=== PATIENT | male | born 1945 | race Caucasian/White ===

== ENCOUNTER 2018-01-27 13:42 | Inpatient (IN) | payer OTHER, BC ==
[2018-01-27] MEDS ORDERED: ACETAMINOPHEN 500 MG TABLET (FP) PO ONE (14:16)
--- NOTE | 2018-01-27 14:16 | PDOC ---
History of Present Illness - General Chief Complaint: Injury Stated Complaint: FALL Time Seen by Provider: 01/27/18 14:15 - History of Present Illness Initial Comments: 01/27/18 14:23 The patient is a 72 year old male with a history of HTN, HLD, DM who presents for evaluation following a fall. The patient reports that he slipped on a driveway earlier today and fell onto his left hip prompting his presentation to the ED for further evaluation. He reports pain with passive and active movement of his left hip. He denies any other injuries or head trauma and otherwise denies fevers, chills, SOB, chest pain, nausea, vomiting, abdominal pain, numbness, tingling, weakness or changes with urination or bowel movements. Past History - Past Medical History Allergies/Adverse Reactions: Allergies Allergy/AdvReac Type Severity Reaction Status Date / Time No Known Allergies Allergy Verified 01/27/18 14:00 Home Medications: Ambulatory Orders Aspirin 81 mg PO DAILY 01/27/18 Cholecalciferol (Vitamin D3) [Vitamin D3] 1,000 unit PO DAILY 01/27/18 Fenofibrate 54 mg PO DAILY 01/27/18 Finasteride 5 mg PO DAILY 01/27/18 Insulin Aspart [Novolog] 0 unit SQ ASDIR 01/27/18 Insulin Pump Cartridge [Omnipod] 1 each SQ ASDIR 01/27/18 Lipase/Protease/Amylase [Creon Dr 24,000 Units Capsule] 1 each PO TID 01/27/18 Lisinopril [Prinivil] 20 mg PO DAILY 01/27/18 Metformin HCl [Metformin HCl ER] 1,000 mg PO BID 01/27/18 Pantoprazole Sodium [Protonix] 40 mg PO DAILY 01/27/18 Rosuvastatin Calcium [Crestor] 20 mg PO HS 01/27/18 Tamsulosin HCl [Flomax -] 0.4 mg PO BID 01/27/18 COPD: No Diabetes: Yes HTN: Yes Hypercholesterolemia: Yes - Surgical History Abdominal Surgery: Yes (splenectomy, partial pancreactomy) - Immunization History Immunization Up to Date: Yes - Suicide/Smoking/Psychosocial Hx Smoking History: Never smoked Hx Alcohol Use: No Drug/Substance Use Hx: No Review of Systems - Review of Systems Comments:: 01/27/18 14:27 Constitutional: No fevers, chills, fatigue, malaise HEENT: No Rhinorrhea, nasal congestion, visual changes Cardiovascular: No chest pain, syncope, palpitations, lightheadedness Respiratory: No Cough, SOB, Hemoptysis, Gastrointestinal: No Abdominal pain, Nausea, Vomiting, Constipation, Diarrhea, Melena Genitourinary: No Dysuria, Frequency, Urgency, Hesitancy, Hematuria, Flank pain Musculoskeletal: Left hip pain. No Myalgia, arthralgia Skin: No rashes, itching, bruising, pallor Neurologic: No Headache, Dizziness, Numbness, Weakness, or Tingling Psychiatric: No Hallucinations. No SI or HI *Physical Exam - Vital Signs Last Vital Signs Temp Pulse Resp BP Pulse Ox 97.6 F 68 18 141/75 95 01/27/18 14:00 01/27/18 14:00 01/27/18 14:00 01/27/18 14:00 01/27/18 14:00 - Physical Exam Comments: 01/27/18 14:27 General Appearance: Nourished. No Apparent Distress HEENT: Atraumatic. No Pharyngeal Erythema, Tonsillar Exudate, Tonsillar Erythema Neck: No Cervical Lymphadenopathy Respiratory/Chest: Lungs Clear, Normal Breath Sounds. No Crackles, Rales, Rhonchi, Wheezing Cardiovascular: Regular Rhythm, Regular Rate. No Murmur, Gallops, Rubs Gastrointestinal/Abdominal: Normal Bowel Sounds, Soft. No Guarding, Rebound, Tenderness Musculoskeletal: No CVA Tenderness Extremity: Tenderness to palpation along the left greater trochantor. Pain with passive movement of the left hip, 2+ dp pulses bilaterally. Normal Capillary Refill Integumentary: Normal Color, Dry, Warm Neurologic: intact, Fully Oriented, Alert, Normal Mood/Affect, Normal Response, Heart Score/ECG Review #1 ECG reviewed & interpreted by me at: 16:57 General ECG Interpretation: Sinus Rhythm, Normal Rate, Normal Intervals, No acute ischemic changes ED Treatment Course - LABORATORY CBC & Chemistry Diagram: 01/27/18 15:30 01/27/18 15:30 Medical Decision Making - Medical Decision Making 01/27/18 14:28 The patient is a 72 year old male with a history of HTN, HLD, DM who presents for evaluation following a fall. Differential includes but is not limited to: Fracture, Contusion, Ligamentous injury. Given the patient's history and physical exam, we will obtain a plain film of the patient's hip and femur to evaluate further. We will treat with tylenol and continue to monitor and reassess while here in the ED. 01/27/18 18:58 Plain films of the patient's hip demonstrates an left intratrochanteric fracture. The patient will require admission for further management. CBC, cmp are unremarkable. The patient will be admitted for orthopedic consultation with Dr. Alvarez. We discussed the case with the admitting team who accepted the patient for admission. *DC/Admit/Observation/Transfer Diagnosis at time of Disposition: Closed left hip fracture Qualifiers: Encounter type: initial encounter Qualified Code(s): S72.002A - Fracture of unspecified part of neck of left femur, initial encounter for closed fracture - Discharge Dispostion Condition at time of disposition: Stable Decision to Admit order: Yes - Referrals - Patient Instructions - Post Discharge Activity
--- NOTE | 2018-01-27 14:17 | PDOC ---
Attending Attestation - Resident Resident Name: Gerard Madrid - ED Attending Attestation I have performed the following: I have examined & evaluated the patient, The case was reviewed & discussed with the resident, I agree w/resident's findings & plan, Exceptions are as noted - HPI HPI: 01/27/18 14:31 72-year-old male with history of hypertension, diabetes, hyperlipidemia presents with mechanical fall. The patient fell and landed on his left hip. No other injuries. No loss of consciousness. Reports pain on movement. Denies numbness or weakness. - Physicial Exam PE: 01/27/18 14:28 GENERAL: Awake, alert, and fully oriented, in no acute distress HEAD: No signs of trauma EYES: EOMI, sclera anicteric, conjunctiva clear ENT: Auricles normal inspection, hearing grossly normal, nares patent,. Moist mucosa NECK: Normal ROM, supple, LUNGS: Breath sounds equal, clear to auscultation bilaterally. No wheezes, and no crackles HEART: Regular rate and rhythm, normal S1 and S2, no murmurs, rubs or gallops ABDOMEN: Soft, nontender No guarding, no rebound. No masses PELVIS: TTP left greater trochanter. Stable. Pain on passive and active motion of left hip. EXTREMITIES: No lacerations or tears. 2+ DP pulse LLE. NEUROLOGICAL: Cranial nerves II through XII grossly intact. Normal speech SKIN: Warm, Dry, normal turgor, no rashes or lesions noted. - Medical Decision Making 01/27/18 14:32 Vital Signs Temp Pulse Resp BP Pulse Ox 97.6 F 68 18 141/75 95 01/27/18 14:00 01/27/18 14:00 01/27/18 14:00 01/27/18 14:00 01/27/18 14:00 Rule out left hip fracture. We'll require x-rays of the pelvis, hip and femur. 01/27/18 15:24 Xray demonstrates left hip fracture. Ortho consult. Admit Heart Score/ECG Review #1 ECG reviewed & interpreted by me at: 16:45 01/27/18 16:56 NSR 57, no std/bill, T wave flat III, normal axis, normal intervals, QTC 391 msec
[2018-01-27] MEDS ORDERED: ACETAMINOPHEN 325 MG TABLET (FP) ONE (14:20)
[2018-01-27 16:14] LABS: BASO % 0.6 % (0-2.0); EOS % 2.4 % (0-4.5); HEMATOCRIT 41.7 % (35.4-49); HEMOGLOBIN 13.8 GM/dL (11.7-16.9); LYMPH % 24.4 % (8-40); MCHC 33.2 g/dl (32.0-35.9); MEAN CELL VOLUME 87.5 fl (80-96); MEAN PLT VOLUME 9.6 fl (7.5-11.1); MONO % 7.6 % (3.8-10.2); PLATELET COUNT 308 K/MM3 (134-434); RBC 4.76 M/mm3 (4.00-5.60); WHITE BLOOD COUNT 12.4 K/mm3 (4.0-10.0)
[2018-01-27 16:26] LABS: INR 1.02 (0.83-1.09)
[2018-01-27 16:29] LABS: ACTIVATED PTT 27.1 SECONDS (25.2-36.5)
[2018-01-27 17:05] LABS: ALBUMIN 3.7 g/dl (3.4-5.0); ALK PHOS 44 U/L (45-117); ANION GAP 10 MMOL/L (8-16); BILIRUBIN,TOTAL 0.3 mg/dL (0.2-1); BLOOD UREA NITROGEN 21 mg/dL (7-18); CALCIUM 9.5 mg/dL (8.5-10.1); CHLORIDE 101 mmol/L (98-107); CO2 26 mmol/L (21-32); CREATININE 1.2 mg/dL (0.55-1.3); GLUCOSE,RANDOM 180 mg/dL (74-106); POTASSIUM 4.4 mmol/L (3.5-5.1); SGOT/AST 17 U/L (15-37); SGPT/ALT 31 U/L (13-61); SODIUM 136 mmol/L (136-145); TOT PROT 6.8 g/dl (6.4-8.2)
[2018-01-27] MEDS ORDERED: oxyCODONE HCL 5 MG TABLET PO ONE (17:51)
[2018-01-27] MEDS ORDERED: oxyCODONE HCL 5 MG TABLET ONE (17:56)
[2018-01-27] MEDS ORDERED: oxyCODONE HCL 5 MG TABLET PO PRN (18:54)
[2018-01-27] MEDS ORDERED: INSULIN PUMP CARTRIDGE SQ SCH (19:00)
[2018-01-27] MEDS: DOCUSATE SODIUM 100 MG CAPSULE (FP) PO SCH (21:51)
[2018-01-27] MEDS: ROSUVASTATIN CA 20 MG TABLET (FP) PO SCH (21:51)
[2018-01-27] MEDS: SENNOSIDES 8.6MG TABLET (FP) PO SCH (21:51)
[2018-01-27] MEDS: TAMSULOSIN HCL 0.4 MG CAP PO SCH (21:51)
[2018-01-27] MEDS: oxyCODONE HCL 5 MG TABLET PO PRN (21:52)
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
[2018-01-27] MEDS ORDERED: PATIENT'S OWN MEDICATION (NON-FORMULARY) (Lipase/Protease/Amylase [Creon Dr 24,000 Units C PO SCH (22:00)
[2018-01-27] MEDS: INSULIN (LEVEMIR) 100 UNITS/ML UNITS SQ SCH (22:28)
[2018-01-28 00:02] VITALS: BMI 31.5
[2018-01-28] MEDS: oxyCODONE HCL 5 MG TABLET PO PRN ×3 (03:40→20:27)
[2018-01-28] MEDS: DOCUSATE SODIUM 100 MG CAPSULE (FP) PO SCH ×3 (06:20→21:15)
[2018-01-28] MEDS: INSULIN SLIDING SCALE (NOVOLOG) 1 VIAL SQ SCH ×3 (06:20→17:38)
--- NOTE | 2018-01-28 07:44 | EKG ---
Test Reason : Blood Pressure : / mmHG Vent. Rate : 057 BPM Atrial Rate : 057 BPM P-R Int : 180 ms QRS Dur : 102 ms QT Int : 402 ms P-R-T Axes : 022 022 033 degrees QTc Int : 391 ms SINUS BRADYCARDIA WITH PREMATURE ATRIAL COMPLEXES NO PREVIOUS ECGS AVAILABLE Confirmed by LANE MIJARES MD ([id number]) on 01/28/2018 7:44:08 AM Referred By: Confirmed By:LANE MIJARES MD
[2018-01-28] MEDS: TAMSULOSIN HCL 0.4 MG CAP PO SCH ×2 (08:51→21:15)
--- NOTE | 2018-01-28 09:55 | CON.ORTH ---
Consult Reason for Consultation:: left hip fx - Alcohol/Substance Use Hx Alcohol Use: No - Smoking History Smoking history: Never smoked Have you smoked in the past 12 months: No Home Medications - Allergies Allergies/Adverse Reactions: Allergies Allergy/AdvReac Type Severity Reaction Status Date / Time No Known Allergies Allergy Verified 01/27/18 14:00 - Home Medications Home Medications: Ambulatory Orders Aspirin 81 mg PO DAILY 01/27/18 Cholecalciferol (Vitamin D3) [Vitamin D3] 1,000 unit PO DAILY 01/27/18 Fenofibrate 54 mg PO DAILY 01/27/18 Finasteride 5 mg PO DAILY 01/27/18 Insulin Aspart [Novolog] 0 unit SQ ASDIR 01/27/18 Insulin Pump Cartridge [Omnipod] 1 each SQ ASDIR 01/27/18 Lipase/Protease/Amylase [Creon Dr 24,000 Units Capsule] 1 each PO TID 01/27/18 Lisinopril [Prinivil] 20 mg PO DAILY 01/27/18 Metformin HCl [Metformin HCl ER] 1,000 mg PO BID 01/27/18 Pantoprazole Sodium [Protonix] 40 mg PO DAILY 01/27/18 Rosuvastatin Calcium [Crestor] 20 mg PO HS 01/27/18 Tamsulosin HCl [Flomax -] 0.4 mg PO BID 01/27/18 Physical Exam for Ortho Vital Signs: Vital Signs Temperature 98.8 F 01/28/18 05:35 Pulse Rate 79 01/28/18 05:35 Respiratory Rate 20 01/28/18 05:35 Blood Pressure 146/76 01/28/18 05:35 O2 Sat by Pulse Oximetry (%) 98 01/27/18 20:15 Labs: CBC, BMP 01/27/18 15:30 01/27/18 15:30 INR, PTT INR 1.02 (0.83-1.09) 01/27/18 15:30 - Lower Extremity Hip: Yes: Left, Decreased ROM, Pain, Swelling, Other (nvi) Imaging - Results X-ray: Report Reviewed, Image Reviewed Assessment/Plan 72 year old male with a history of HTN, HLD, DM who presents for evaluation following a fall. The patient reports that he slipped on a driveway earlier today and fell onto his left hip prompting his presentation to the ED for further evaluation. He reports pain with passive and active movement of his left hip. He denies any other injuries or head trauma and otherwise denies fevers, chills, SOB, chest pain, nausea, vomiting, abdominal pain, numbness, tingling, weakness or changes with urination or bowel movements. a/p left femoral neck fx Risks and benefits were d/w pt in detail OR for left hip cannulated screws surgical clearance NPO d/w Dr. Alvarez
[2018-01-28] MEDS: FENOFIBRIC ACID 45 MG CAP PO SCH (10:00)
[2018-01-28] MEDS ORDERED: ASPIRIN 81 MG CHEWABLE TABLETS PO SCH (10:00)
[2018-01-28] MEDS ORDERED: PT OWN MED DRAWER 7, Y5N ONE (10:19)
[2018-01-28] MEDS: PANTOPRAZOLE 40 MG TABLET (FP) PO SCH (10:23)
[2018-01-28] MEDS: CHOLECALCIFEROL (VITAMIN D3) 1,000 UNIT TABLET (FP) PO SCH (10:23)
[2018-01-28] MEDS: FINASTERIDE 5 MG TABLET (FP) PO SCH (10:23)
[2018-01-28] MEDS: LISINOPRIL 20 MG TABLET (FP) PO SCH (10:23)
[2018-01-28] MEDS ORDERED: ONDANSETRON 4 MG/2 ML VIAL IVPUSH PRN (12:36)
[2018-01-28] MEDS ORDERED: MIDAZOLAM HCL 2 MG/2 ML SINGLE DOSE VIAL ONE (12:50)
[2018-01-28] MEDS ORDERED: LIDOCAINE HCL/PF 2% SDV 5ML VIAL ONE (12:50)
[2018-01-28] MEDS ORDERED: PROPOFOL 20 ML ONE ×2 (12:50→12:51)
[2018-01-28] MEDS ORDERED: ceFAZolin SODIUM 1 GM VIAL ONE (13:12)
[2018-01-28] MEDS ORDERED: SODIUM CHLORIDE 0.9% P/F 10 ML VIAL IJ ONE (13:12)
[2018-01-28] MEDS ORDERED: DEXAMETHASONE SOD PHOSPHATE 4 MG/1 ML VIAL ONE (13:14)
[2018-01-28] MEDS ORDERED: ceFAZolin SODIUM 1 GM VIAL IVPB ONE (13:15)
[2018-01-28] MEDS ORDERED: METOPROLOL TARTRATE 5 MG/5 ML VIAL ONE (13:16)
--- NOTE | 2018-01-28 14:19 | OP ---
Operative Note - Note: Operative Date: 01/28/18 Pre-Operative Diagnosis: L ND FEMORAL NECK FX Post-Operative Diagnosis: Same as Pre-op Surgeon: Tye Alvarez Anesthesia: General Estimated Blood Loss (mls): 0 Operative Report Dictated: Yes
[2018-01-28] MEDS ORDERED: KETOROLAC TROMETHAMINE 30 MG/1 ML VIAL ONE (14:48)
[2018-01-28] MEDS ORDERED: KETOROLAC TROMETHAMINE 30 MG/1 ML VIAL IVPUSH ONE (15:00)
[2018-01-28] MEDS ORDERED: oxyCODONE HCL 5 MG TABLET PO ONE (16:00)
[2018-01-28] MEDS ORDERED: oxyCODONE HCL 5 MG TABLET ONE (16:03)
[2018-01-28] MEDS: LACTATED RINGERS SOLUTION 1,000 ML IV SCH (17:36)
[2018-01-28] MEDS: CEFAZOLIN 2 GM/D5W 2 GM/50 ML ML IVPB SCH (20:29)
--- NOTE | 2018-01-28 20:34 | PN ---
Physical Exam: SUBJECTIVE: Patient seen and examined, just returned from OR from left ORIF. Patient reports he feels well and his pain is manageable. He is hungry and ready to eat. OBJECTIVE: Vital Signs Period Temp Pulse Resp BP Sys/Gallegos Pulse Ox Last 24 Hr 98 F-98.8 F 69-87 12-21 130-169/56-80 94-989 GENERAL: Awake, alert, and fully oriented, in no acute distress. HEAD: Normal with no signs of trauma. EYES: Pupils equal, round and reactive to light, extraocular movements intact, sclera anicteric, conjunctiva clear. No lid lag. EARS, NOSE, THROAT: Ears normal, nares patent, oropharynx clear without exudates. Moist mucous membranes. NECK: Normal range of motion, supple without lymphadenopathy, JVD, or masses. LUNGS: Breath sounds equal, clear to auscultation bilaterally. No wheezes, and no crackles. No accessory muscle use. HEART: Regular rate and rhythm, normal S1 and S2 without murmur, rub or gallop. ABDOMEN: Soft, nontender, not distended, normoactive bowel sounds, no guarding, no rebound, no masses. No hepatomegaly or splenomegaly. MUSCULOSKELETAL: Normal range of motion at all joints. No bony deformities or tenderness. No CVA tenderness. UPPER EXTREMITIES: 2+ pulses, warm, well-perfused. No cyanosis. No clubbing. No peripheral edema. LOWER EXTREMITIES: Aquacell dressing to left lateral hip, no strikethrough, no surrounding edema or erythema. NEUROLOGICAL: No facial droop, tongue midline, normal speech. Normal gait. PSYCHIATRIC: Cooperative. Good eye contact. Appropriate mood and affect. SKIN: Warm, dry, normal turgor, no rashes or lesions noted, normal capillary refill. Laboratory Results - last 24 hr 01/27/18 01/27/18 01/28/18 21:00 22:25 05:48 POC Glucometer 177 198 Blood Type A POSITIVE 01/28/18 01/28/18 01/28/18 11:37 14:58 17:37 POC Glucometer 182 192 205 Blood Type Active Medications Generic Name Dose Route Start Last Admin Trade Name Freq PRN Reason Stop Dose Admin Aspirin 325 mg 01/29/18 10:00 Asa - PO DAILY WILL Cholecalciferol 1,000 unit 01/28/18 10:00 01/28/18 10:23 Vitamin D3 - PO 1,000 unit DAILY WILL Administration Docusate Sodium 100 mg 01/27/18 22:00 01/28/18 17:35 Colace - PO 100 mg TID WILL Administration Fenofibric Acid 45 mg 01/28/18 10:00 01/28/18 10:00 Trilipix - PO 45 mg DAILY WILL Administration Fentanyl 50 mcg 01/28/18 12:36 Sublimaze Injection - IVPUSH [id number] PRN PAIN-PACU ORDER X 4 DOSES ONLY Finasteride 5 mg 01/28/18 10:00 01/28/18 10:23 Proscar - PO 5 mg DAILY WILL Administration Lactated Ringer's 1,000 mls @ 125 mls/hr 01/28/18 12:45 01/28/18 17:36 Lactated Ringers Solution IV 125 mls/hr ASDIR WILL Administration Cefazolin Sodium/Dextrose 2 gm in 50 mls @ 100 mls/hr 01/28/18 21:00 20:29 Ancef 2 Gm Premixed Ivpb - IVPB 01/29/18 20:59 100 mls/hr Q8H WILL Administration Insulin Aspart 1 vial 01/28/18 07:00 01/28/18 17:38 Novolog Vial Sliding Scale - SQ 4 units TIDAC [facility] Administration Protocol Insulin Detemir 5 units 01/27/18 22:00 01/27/18 22:28 Levemir Vial SQ Not Given HS [facility] Lisinopril 20 mg 01/28/18 10:00 01/28/18 10:23 Prinivil PO 20 mg DAILY WILL Administration Non-Formulary Medication 1 each 01/27/18 22:00 Lipase/Protease/Amylase [[place]in[place]on Dr 24,000 Units Capsule] PO TID [facility] Ondansetron HCl 4 mg 01/28/18 12:36 Zofran Injection IVPUSH Q6H PRN NAUSEA AND/OR VOMITING Oxycodone HCl 5 mg 01/27/18 18:54 Roxicodone - PO Q4H PRN PAIN LEVEL 4 - 6 Oxycodone HCl 10 mg 01/27/18 18:54 01/28/18 20:27 Roxicodone - PO 10 mg Q4H PRN Administration PAIN LEVEL 6-10 Pantoprazole Sodium 40 mg 01/28/18 10:00 01/28/18 10:23 Protonix - PO 40 mg DAILY WILL Administration Rosuvastatin Calcium 20 mg 01/27/18 22:00 01/27/18 21:51 Crestor - PO 20 mg HS WILL Administration Senna 2 tab 01/27/18 22:00 01/27/18 21:51 Senna - PO 2 tab HS WILL Administration Tamsulosin HCl 0.4 mg 01/27/18 22:00 01/28/18 08:51 Flomax - PO 0.4 mg 0830,2200 WILL Administration ASSESSMENT/PLAN: 72 year old male with a PMH significant for CAD s/p stent, HTN, HLD, DM presented to the ED with left hip pain following a fall. X-rays showed left hip fracture, patient admitted for surgical reduction. Left femoral neck fracture -Left femoral neck fracture repair by dr. horvath -Oxycodone for pain control -Senna and Colace for bowel regimen -OOB to chair -Incentive spirometer -Physical therapy consult ordered. CAD -S/p stent -ASA HTN -Lisinopril 20 HLD -Fenobirate -Rosuvastatin 20 mg Diabetes -Hold Omni pump -Levimer 5 u HS -SS with novolog -Monitor Glucose BPH -Tamsulosin 0.4 mg -Finasteride 5 mg FEN -PO intake adequate -Replete lytes as indicated -Diabetic Diet Prophylaxis DVT: SCDs GI: Protonix Disp: Patient requires further inpatient monitoring. Visit type - Emergency Visit Emergency Visit: No - New Patient This patient is new to me today: No - Critical Care Critical Care patient: No
[2018-01-28] MEDS: ROSUVASTATIN CA 20 MG TABLET (FP) PO SCH (21:15)
[2018-01-28] MEDS: SENNOSIDES 8.6MG TABLET (FP) PO SCH (21:15)
[2018-01-28] MEDS: INSULIN (LEVEMIR) 100 UNITS/ML UNITS SQ SCH (21:15)
[2018-01-29] MEDS: DOCUSATE SODIUM 100 MG CAPSULE (FP) PO SCH ×3 (05:05→21:34)
[2018-01-29] MEDS: CEFAZOLIN 2 GM/D5W 2 GM/50 ML ML IVPB SCH ×3 (05:05→17:47)
[2018-01-29] MEDS: oxyCODONE HCL 5 MG TABLET PO PRN ×4 (05:13→21:33)
[2018-01-29] MEDS: LACTATED RINGERS SOLUTION 1,000 ML IV SCH ×5 (05:14→20:19)
[2018-01-29] MEDS: INSULIN SLIDING SCALE (NOVOLOG) 1 VIAL SQ SCH ×3 (06:21→17:22)
[2018-01-29] MEDS ORDERED: INSULIN (NOVOLOG) ASPART 100 UNITS/ML 10ML VIAL ONE (06:23)
--- NOTE | 2018-01-29 07:33 | OP ---
DATE OF OPERATION: 01/28/2018 PREOPERATIVE DIAGNOSIS: Nondisplaced left femoral neck fracture. POSTOPERATIVE DIAGNOSIS: Nondisplaced left femoral neck fracture. PROCEDURE: Cannulated screws, left femoral neck. SURGICAL ATTENDING: Tye Alvarez MD ANESTHESIA: General with LMA. CLOSURE: Three 6.5 cannulated screws from Haylee of appropriate length and 2-0 Vicryl subcutaneous and Steri-Strips for skin. ESTIMATED BLOOD LOSS: Negligible. COMPLICATIONS: None. CONDITION: To recovery room in stable condition. DESCRIPTION OF OPERATIVE PROCEDURE: Patient was taken to the operating room on January 28, 2018. General anesthesia with LMA was administered by the anesthesiologist. IV Kefzol was given prophylactically prior to the case. Patient was fastened to the fracture table with all prominences well padded. The left hip area was prepped and draped in the usual sterile fashion. Fluoroscopy in the AP and lateral views revealed the nondisplaced femoral neck fracture. A small 1-inch stab incision through the skin and the fascia on the lateral aspect of the thigh was made. Periosteal elevator was used to clear the periosteum off the lateral aspect of the femur. Three guidewires from the 6.5 cannulated screw set were drilled in a parallel fashion in an L formation with 2 posterior and 1 more anterior from the lateral femur through the femoral neck into the femoral head. Proper placement was confirmed in the AP and lateral planes by using the image intensifier. These screws were measured for length. Their outer cortex was drilled, and then, they were screwed with the appropriate length 6.5 cannulated screws achieving excellent fixation. Traction to the fracture table was reduced, and all screws were then cinched snuggly down compressing the fracture. X-rays in AP, lateral, and clock views revealed excellent position of the hardware with no penetrating into the hip joint. The wires were removed. The wound was irrigated. The subcutaneous was closed with 2-0 Vicryl, and then closed with Steri-Strips for skin, followed by an Aquacel dressing. Patient was awakened from anesthesia and transferred to the recovery room in stable condition. No complications. Estimated blood loss negligible. Juan [id number]/[id number]
[2018-01-29 09:08] LABS: MCH 28.2 pg (25.7-33.7); MCHC 32.5 g/dl (32.0-35.9); MEAN CELL VOLUME 86.6 fl (80-96); MEAN PLT VOLUME 9.4 fl (7.5-11.1); PLATELET COUNT 218 K/MM3 (134-434); RBC 4.62 M/mm3 (4.00-5.60); RDW 14.2 % (11.9-15.9)
[2018-01-29] MEDS: CHOLECALCIFEROL (VITAMIN D3) 1,000 UNIT TABLET (FP) PO SCH (09:16)
[2018-01-29] MEDS: TAMSULOSIN HCL 0.4 MG CAP PO SCH ×2 (09:17→21:32)
[2018-01-29] MEDS: LISINOPRIL 20 MG TABLET (FP) PO SCH (09:17)
[2018-01-29] MEDS: FINASTERIDE 5 MG TABLET (FP) PO SCH (09:17)
[2018-01-29] MEDS: PANTOPRAZOLE 40 MG TABLET (FP) PO SCH (09:17)
[2018-01-29] MEDS: FENOFIBRIC ACID 45 MG CAP PO SCH (09:22)
--- NOTE | 2018-01-29 09:24 | PN ---
Progress Note (short form) - Note Progress Note: Post op day#1.S/P Left hip cannulated screw under GA uneventful.Patient stable.No any anesthesia related problem.Patient DC from the anesthesia care.
[2018-01-29 09:33] LABS: ANION GAP 9 MMOL/L (8-16); BLOOD UREA NITROGEN 20 mg/dL (7-18); CALCIUM 8.7 mg/dL (8.5-10.1); CHLORIDE 102 mmol/L (98-107); CO2 27 mmol/L (21-32); CREATININE 1.3 mg/dL (0.55-1.3); GLUCOSE,RANDOM 177 mg/dL (74-106); POTASSIUM 4.4 mmol/L (3.5-5.1); SODIUM 138 mmol/L (136-145)
[2018-01-29] MEDS ORDERED: ASPIRIN 325 MG TABLET PO SCH (10:00)
--- NOTE | 2018-01-29 16:02 | PN ---
Physical Exam: SUBJECTIVE: Patient seen and examined, PO day 1 L ORIF. Patient reports he feels well and his pain is manageable. He has been tolerating food. No SOB, chest pain, dizzyness, n/v/d, or incontinence. Had PT today, seen by anesthesiology. concerned about discharge planning and wants to make sure he's placed in rehab before he comes home. OBJECTIVE: Vital Signs Period Temp Pulse Resp BP Sys/Gallegos Pulse Ox Last 24 Hr 97.9 F-99.1 F 69-83 14-20 138-158/68-80 93-98 GENERAL: Awake, alert, and fully oriented, in no acute distress. HEAD: Normal with no signs of trauma. EYES: Pupils equal, round and reactive to light, extraocular movements intact, sclera anicteric, conjunctiva clear. No lid lag. EARS, NOSE, THROAT: Ears normal, nares patent, oropharynx clear without exudates. Moist mucous membranes. NECK: Normal range of motion, supple without lymphadenopathy, JVD, or masses. LUNGS: Breath sounds equal, clear to auscultation bilaterally. No wheezes, and no crackles. No accessory muscle use. HEART: Regular rate and rhythm, normal S1 and S2 without murmur, rub or gallop. ABDOMEN: Soft, nontender, not distended, normoactive bowel sounds, no guarding, no rebound, no masses. No hepatomegaly or splenomegaly. MUSCULOSKELETAL: Normal range of motion at all joints. No bony deformities or tenderness. No CVA tenderness. UPPER EXTREMITIES: 2+ pulses, warm, well-perfused. No cyanosis. No clubbing. No peripheral edema. LOWER EXTREMITIES: Aquacell dressing to left lateral hip, no strike-through, no surrounding edema or erythema. NEUROLOGICAL: No facial droop, tongue midline, normal speech. Normal gait. PSYCHIATRIC: Cooperative. Good eye contact. Appropriate mood and affect. SKIN: Warm, dry, normal turgor, no rashes or lesions noted, normal capillary refill. Laboratory Results - last 24 hr 01/28/18 01/28/18 01/29/18 17:37 21:14 05:38 WBC RBC Hgb Hct MCV MCH MCHC RDW Plt Count MPV Sodium Potassium Chloride Carbon Dioxide Anion Gap BUN Creatinine Creat Clearance w eGFR POC Glucometer 205 260 180 Random Glucose Calcium 11/01/0601/29/18 01/29/18 07:45 07:45 11:40 WBC 16.0 H RBC 4.62 Hgb 13.0 Hct 40.0 MCV 86.6 MCH 28.2 MCHC 32.5 RDW 14.2 Plt Count 218 D MPV 9.4 Sodium 138 Potassium 4.4 Chloride 102 Carbon Dioxide 27 Anion Gap 9 BUN 20 H Creatinine 1.3 Creat Clearance w eGFR 54.57 POC Glucometer 267 Random Glucose 177 H Calcium 8.7 Active Medications Generic Name Dose Route Start Last Admin Trade Name Freq PRN Reason Stop Dose Admin Aspirin 325 mg 01/29/18 10:00 01/29/18 09:18 Asa - PO 325 mg DAILY [facility] Administration Cholecalciferol 1,000 unit 01/28/18 10:00 01/29/18 09:16 Vitamin D3 - PO 1,000 unit DAILY [facility] Administration Docusate Sodium 100 mg 01/27/18 22:00 01/29/18 14:00 Colace - PO 100 mg TID WILL Administration Fenofibric Acid 45 mg 01/28/18 10:00 01/29/18 09:22 Trilipix - PO 45 mg DAILY [facility] Administration Fentanyl 50 mcg 01/28/18 12:36 Sublimaze Injection - IVPUSH [id number] PRN PAIN-PACU ORDER X 4 DOSES ONLY Finasteride 5 mg 01/28/18 10:00 01/29/18 09:17 Proscar - PO 5 mg DAILY [facility] Administration Lactated Ringer's 1,000 mls @ 125 mls/hr 01/28/18 12:45 01/29/18 13:14 Lactated Ringers Solution IV Not Given ASDIR [facility] Cefazolin Sodium/Dextrose 2 gm in 50 mls @ 100 mls/hr 01/28/18 21:00 14:00 Ancef 2 Gm Premixed Ivpb - IVPB 01/29/18 20:59 100 mls/hr Q8H [facility] Administration Insulin Aspart 1 vial 01/28/18 07:00 01/29/18 11:59 Novolog Vial Sliding Scale - SQ 6 units TIDAC [facility] Administration Protocol Insulin Detemir 5 units 01/27/18 22:00 01/28/18 21:15 Levemir Vial SQ 5 units HS [facility] Administration Lisinopril 20 mg 01/28/18 10:00 01/29/18 09:17 Prinivil PO 20 mg DAILY WILL Administration Non-Formulary Medication 1 each 01/27/18 22:00 Lipase/Protease/Amylase [Pb Valentine 24,000 Units Capsule] PO TID WILL Ondansetron HCl 4 mg 01/28/18 12:36 Zofran Injection IVPUSH Q6H PRN NAUSEA AND/OR VOMITING Oxycodone HCl 5 mg 01/27/18 18:54 Roxicodone - PO Q4H PRN PAIN LEVEL 4 - 6 Oxycodone HCl 10 mg 01/27/18 18:54 01/29/18 13:59 Roxicodone - PO 10 mg Q4H PRN Administration PAIN LEVEL 6-10 Pantoprazole Sodium 40 mg 01/28/18 10:00 01/29/18 09:17 Protonix - PO 40 mg DAILY WILL Administration Rosuvastatin Calcium 20 mg 01/27/18 22:00 01/28/18 21:15 Crestor - PO 20 mg HS WILL Administration Senna 2 tab 01/27/18 22:00 01/28/18 21:15 Senna - PO 2 tab HS WILL Administration Tamsulosin HCl 0.4 mg 01/27/18 22:00 01/29/18 09:17 Flomax - PO 0.4 mg 0830,2200 WILL Administration ASSESSMENT/PLAN: 72 year old male with a PMH significant for CAD s/p stent, HTN, HLD, DM presented to the ED with left hip pain following a fall. X-rays showed left hip fracture, patient admitted for surgical reduction. Left femoral neck fracture -Post op day 1 left femoral neck fracture repair with cannulated screw under [place] by dr. horvath -Afebrile -WBC 16.0, monitor CBC -Oxycodone for pain control -Senna and Colace for bowel regimen -OOB to chair with assistance -Incentive spirometer -Physical therapy -Subacute rehab upon d/c CAD -S/p stent -ASA HTN -Lisinopril 20 HLD -Fenobirate -Rosuvastatin 20 mg Diabetes -Hold Omni pump -Levimer 5 u HS -SS with novolog -Monitor Glucose BPH -Tamsulosin 0.4 mg -Finasteride 5 mg FEN -PO intake adequate -Replete lytes as indicated -Diabetic Diet Prophylaxis DVT: SCDs GI: Protonix Disp: Patient requires further inpatient monitoring. Visit type - Emergency Visit Emergency Visit: No - New Patient This patient is new to me today: No - Critical Care Critical Care patient: No
[2018-01-29] MEDS ORDERED: oxyCODONE HCL 5 MG TABLET PO PRN (16:51)
[2018-01-29] MEDS ORDERED: ONDANSETRON 4 MG/2 ML VIAL IVPUSH PRN (16:51)
--- NOTE | 2018-01-29 19:54 | PN ---
Progress Note (short form) - Note Progress Note: AVSS COMFORTABLE BANDAGES DRY AND INTACT CALF SOFT AND NT NVI IMP: DOING WELL PLAN: OOB, PT, DC PLANNING
[2018-01-29] MEDS: ROSUVASTATIN CA 20 MG TABLET (FP) PO SCH (21:32)
[2018-01-29] MEDS: SENNOSIDES 8.6MG TABLET (FP) PO SCH (21:32)
[2018-01-29] MEDS ORDERED: INSULIN (LEVEMIR) 100 UNITS/ML UNITS SQ SCH (22:00)
[2018-01-30] MEDS: CEFAZOLIN 2 GM/D5W 2 GM/50 ML ML IVPB SCH ×2 (02:59→12:00)
[2018-01-30] MEDS: oxyCODONE HCL 5 MG TABLET PO PRN ×2 (03:53→08:37)
[2018-01-30] MEDS ORDERED: PT OWN MED DRAWER 7, Y5N ONE ×4 (05:29→11:54)
[2018-01-30] MEDS: INSULIN SLIDING SCALE (NOVOLOG) 1 VIAL SQ SCH ×3 (06:16→17:11)
[2018-01-30] MEDS: DOCUSATE SODIUM 100 MG CAPSULE (FP) PO SCH ×3 (06:16→21:24)
[2018-01-30] MEDS: LACTATED RINGERS SOLUTION 1,000 ML IV SCH ×2 (06:19→17:10)
[2018-01-30] MEDS: TAMSULOSIN HCL 0.4 MG CAP PO SCH ×2 (08:36→21:24)
[2018-01-30] MEDS: LIPASE/PROTEASE/AMYLASE 6,000 UNIT CAPSULE PO SCH ×3 (08:38→17:29)
[2018-01-30 09:14] LABS: HEMATOCRIT 39.1 % (35.4-49); HEMOGLOBIN 12.6 GM/dL (11.7-16.9); MCH 28.3 pg (25.7-33.7); MCHC 32.3 g/dl (32.0-35.9); MEAN CELL VOLUME 87.6 fl (80-96); MEAN PLT VOLUME 9.9 fl (7.5-11.1); PLATELET COUNT 202 K/MM3 (134-434); RBC 4.46 M/mm3 (4.00-5.60); RDW 13.8 % (11.9-15.9); WHITE BLOOD COUNT 13.9 K/mm3 (4.0-10.0)
[2018-01-30] MEDS: ASPIRIN 325 MG TABLET PO SCH (10:01)
[2018-01-30] MEDS: LISINOPRIL 20 MG TABLET (FP) PO SCH (10:02)
[2018-01-30] MEDS: FINASTERIDE 5 MG TABLET (FP) PO SCH (10:02)
[2018-01-30] MEDS: CHOLECALCIFEROL (VITAMIN D3) 1,000 UNIT TABLET (FP) PO SCH (10:03)
[2018-01-30] MEDS: PANTOPRAZOLE 40 MG TABLET (FP) PO SCH (10:03)
[2018-01-30] MEDS: FENOFIBRIC ACID 45 MG CAP PO SCH (10:04)
[2018-01-30 10:15] LABS: ANION GAP 12 MMOL/L (8-16); BLOOD UREA NITROGEN 15 mg/dL (7-18); CALCIUM 8.7 mg/dL (8.5-10.1); CHLORIDE 101 mmol/L (98-107); CO2 24 mmol/L (21-32); CREATININE 1.2 mg/dL (0.55-1.3); GLUCOSE,RANDOM 149 mg/dL (74-106); POTASSIUM 4.4 mmol/L (3.5-5.1); SODIUM 137 mmol/L (136-145)
[2018-01-30] MEDS ORDERED: INSULIN (LEVEMIR) 100 UNITS/ML UNITS SQ SCH (13:24)
--- NOTE | 2018-01-30 13:25 | PN ---
Physical Exam: SUBJECTIVE: Patient seen and examined, PO day 2 L ORIF. Patient reports he feels well and his pain is manageable. He has been tolerating food, still no bowel movement since surgery. No SOB, chest pain, dizzyness, n/v/d, or incontinence. Seen by Dr. Alvarez yesterday, planning discharge to subacute rehab facility in [place] with case management. OBJECTIVE: Vital Signs Period Temp Pulse Resp BP Sys/Gallegos Pulse Ox Last 24 Hr 97.8 F-99.3 F 74-98 20-20 130-150/68-86 95 GENERAL: Awake, alert, and fully oriented, in no acute distress. HEAD: Normal with no signs of trauma. EYES: Pupils equal, round and reactive to light, extraocular movements intact, sclera anicteric, conjunctiva clear. No lid lag. EARS, NOSE, THROAT: Ears normal, nares patent, oropharynx clear without exudates. Moist mucous membranes. NECK: Normal range of motion, supple without lymphadenopathy, JVD, or masses. LUNGS: Breath sounds equal, clear to auscultation bilaterally. No wheezes, and no crackles. No accessory muscle use. HEART: Regular rate and rhythm, normal S1 and S2 without murmur, rub or gallop. ABDOMEN: Soft, nontender, not distended, normoactive bowel sounds, no guarding, no rebound, no masses. No hepatomegaly or splenomegaly. MUSCULOSKELETAL: Normal range of motion at all joints. No bony deformities or tenderness. No CVA tenderness. UPPER EXTREMITIES: 2+ pulses, warm, well-perfused. No cyanosis. No clubbing. No peripheral edema. LOWER EXTREMITIES: Aquacell dressing to left lateral hip, no strike-through, no surrounding edema or erythema. NEUROLOGICAL: No facial droop, tongue midline, normal speech. Normal gait. PSYCHIATRIC: Cooperative. Good eye contact. Appropriate mood and affect. SKIN: Warm, dry, normal turgor, no rashes or lesions noted, normal capillary refill. Laboratory Results - last 24 hr 01/29/18 01/29/18 01/30/18 16:33 21:31 06:15 WBC RBC Hgb Hct MCV MCH MCHC RDW Plt Count MPV Sodium Potassium Chloride Carbon Dioxide Anion Gap BUN Creatinine Creat Clearance w eGFR POC Glucometer 217 216 182 Random Glucose Calcium 01/30/18 01/30/18 01/30/18 08:06 08:06 11:39 WBC 13.9 H RBC 4.46 Hgb 12.6 Hct 39.1 MCV 87.6 MCH 28.3 MCHC 32.3 RDW 13.8 Plt Count 202 MPV 9.9 Sodium 137 Potassium 4.4 Chloride 101 Carbon Dioxide 24 Anion Gap 12 BUN 15 Creatinine 1.2 Creat Clearance w eGFR 59.86 POC Glucometer 210 Random Glucose 149 H Calcium 8.7 Active Medications Generic Name Dose Route Start Last Admin Trade Name Freq PRN Reason Stop Dose Admin Aspirin 325 mg 01/30/18 10:00 01/30/18 10:01 Asa - PO 325 mg DAILY WILL Administration Cholecalciferol 1,000 unit 01/30/18 10:00 01/30/18 10:03 Vitamin D3 - PO 1,000 unit DAILY WILL Administration Docusate Sodium 100 mg 01/29/18 22:00 01/30/18 06:16 Colace - PO 100 mg TID WILL Administration Fenofibric Acid 45 mg 01/30/18 10:00 01/30/18 10:04 Trilipix - PO 45 mg DAILY WILL Administration Finasteride 5 mg 01/30/18 10:00 01/30/18 10:02 Proscar - PO 5 mg DAILY WILL Administration Cefazolin Sodium/Dextrose 2 gm in 50 mls @ 100 mls/hr 01/29/18 18:00 12:00 Ancef 2 Gm Premixed Ivpb - IVPB 01/30/18 17:59 100 mls/hr Q8H-IV WILL Administration Lactated Ringer's 1,000 mls @ 125 mls/hr 01/29/18 16:51 01/30/18 06:19 Lactated Ringers Solution IV 125 mls/hr ASDIR WILL Administration Insulin Aspart 1 vial 01/30/18 07:00 01/30/18 11:40 Novolog Vial Sliding Scale - SQ 4 units TIDAC WILL Administration Protocol Insulin Detemir 5 units 01/29/18 22:00 01/29/18 21:34 Levemir Vial SQ 5 units HS WILL Administration Lisinopril 20 mg 01/30/18 10:00 01/30/18 10:02 Prinivil PO 20 mg DAILY WILL Administration Oxycodone HCl 5 mg 01/29/18 16:51 Roxicodone - PO Q4H PRN PAIN LEVEL 4 - 6 Oxycodone HCl 10 mg 01/29/18 16:51 01/30/18 08:37 Roxicodone - PO 10 mg Q4H PRN Administration PAIN LEVEL 6-10 Pancrelipase 4 cap 01/30/18 08:00 01/30/18 12:01 Pb Valentine 6,000 Units Capsule PO 4 cap TIDCM WILL Administration Pantoprazole Sodium 40 mg 01/30/18 10:00 01/30/18 10:03 Protonix - PO 40 mg DAILY WILL Administration Rosuvastatin Calcium 20 mg 01/29/18 22:00 01/29/18 21:32 Crestor - PO 20 mg HS WILL Administration Senna 2 tab 01/29/18 22:00 01/29/18 21:32 Senna - PO 2 tab HS WILL Administration Tamsulosin HCl 0.4 mg 01/29/18 22:00 01/30/18 08:36 Flomax - PO 0.4 mg BID@0830,2200 WILL Administration ASSESSMENT/PLAN: 72 year old male with a PMH significant for CAD s/p stent, HTN, HLD, DM presented to the ED with left hip pain following a fall. X-rays showed left hip fracture, patient admitted for surgical reduction. Left femoral neck fracture -Post op day 2 left femoral neck fracture repair with cannulated screw under [place] by dr. alvarez -Afebrile -WBC trending down 16.0 - > 13.9, monitor CBC -Oxycodone for pain control -Senna and Colace for bowel regimen -Add miralax PRN -OOB to chair with assistance -Incentive spirometer -Physical therapy -Subacute rehab upon d/c CAD -S/p stent -ASA HTN -Lisinopril 20 HLD -Fenobirate -Rosuvastatin 20 mg Diabetes -Hold Omni pump -Sugars in 180s-220s -Increase Levimer 5 -> 7 u HS -SS with novolog -Monitor Glucose BPH -Tamsulosin 0.4 mg -Finasteride 5 mg FEN -PO intake adequate -Replete lytes as indicated -Diabetic Diet Prophylaxis DVT: Start Heparin SQ GI: Protonix Disp: Patient requires further inpatient monitoring. Visit type - Emergency Visit Emergency Visit: No - New Patient This patient is new to me today: No - Critical Care Critical Care patient: No
[2018-01-30] MEDS: POLYETHYLENE GLYCOL 3350 119 GM BTL PO SCH (14:57)
[2018-01-30] MEDS ORDERED: INSULIN (NOVOLOG) ASPART 100 UNITS/ML 10ML VIAL ONE (21:07)
[2018-01-30] MEDS: ROSUVASTATIN CA 20 MG TABLET (FP) PO SCH (21:24)
[2018-01-30] MEDS: SENNOSIDES 8.6MG TABLET (FP) PO SCH (21:24)
[2018-01-30] MEDS: HEPARIN NA (PORCINE) 5,000 UNITS/ML 1ML VIAL SQ SCH (21:24)
[2018-01-31] MEDS: HEPARIN NA (PORCINE) 5,000 UNITS/ML 1ML VIAL SQ SCH ×2 (06:34→14:00)
[2018-01-31] MEDS: DOCUSATE SODIUM 100 MG CAPSULE (FP) PO SCH ×2 (06:34→14:00)
[2018-01-31] MEDS: INSULIN SLIDING SCALE (NOVOLOG) 1 VIAL SQ SCH ×2 (06:35→12:19)
[2018-01-31 07:45] LABS: ANION GAP 8 MMOL/L (8-16); BLOOD UREA NITROGEN 17 mg/dL (7-18); CALCIUM 9.2 mg/dL (8.5-10.1); CHLORIDE 102 mmol/L (98-107); CO2 26 mmol/L (21-32); CREATININE 1.2 mg/dL (0.55-1.3); GLUCOSE,RANDOM 194 mg/dL (74-106); POTASSIUM 4.5 mmol/L (3.5-5.1); SODIUM 137 mmol/L (136-145)
[2018-01-31 07:46] LABS: HEMATOCRIT 39.4 % (35.4-49); HEMOGLOBIN 12.7 GM/dL (11.7-16.9); MCH 28.2 pg (25.7-33.7); MCHC 32.2 g/dl (32.0-35.9); MEAN CELL VOLUME 87.5 fl (80-96); MEAN PLT VOLUME 9.7 fl (7.5-11.1); PLATELET COUNT 193 K/MM3 (134-434); RBC 4.51 M/mm3 (4.00-5.60); RDW 13.8 % (11.9-15.9); WHITE BLOOD COUNT 12.2 K/mm3 (4.0-10.0)
[2018-01-31] MEDS: TAMSULOSIN HCL 0.4 MG CAP PO SCH (08:34)
[2018-01-31] MEDS: LIPASE/PROTEASE/AMYLASE 6,000 UNIT CAPSULE PO SCH ×2 (08:35→12:19)
--- NOTE | 2018-01-31 08:40 | PN ---
Progress Note (short form) - Note Progress Note: Ortho Pt seen and examined s/p left hip cannulated screws pod #3 Selected Entries 01/30/18 01/31/18 21:33 05:00 Temperature 98.3 F Pulse Rate 71 Respiratory 20 Rate Blood Pressure 145/68 Laboratory Tests 01/31/18 06:30 WBC 12.2 H Hgb 12.7 Hct 39.4 Plt Count 193 dressing c/d/i, calf soft, nt nvi a/p PT dvt ppx pain control d/c planning
[2018-01-31] MEDS: ASPIRIN 325 MG TABLET PO SCH (10:33)
[2018-01-31] MEDS: FINASTERIDE 5 MG TABLET (FP) PO SCH (10:34)
[2018-01-31] MEDS: CHOLECALCIFEROL (VITAMIN D3) 1,000 UNIT TABLET (FP) PO SCH (10:34)
[2018-01-31] MEDS: PANTOPRAZOLE 40 MG TABLET (FP) PO SCH (10:34)
[2018-01-31] MEDS: LISINOPRIL 20 MG TABLET (FP) PO SCH (10:38)
[2018-01-31] MEDS: POLYETHYLENE GLYCOL 3350 119 GM BTL PO SCH (10:59)
[2018-01-31] MEDS: FENOFIBRIC ACID 45 MG CAP PO SCH (10:59)
--- NOTE | 2018-01-31 16:00 | DS ---
Physical Exam: SUBJECTIVE: Patient seen and examined, he continues to feel better. D/vanessa today for subacute rehab at [facility]. OBJECTIVE: Vital Signs Period Temp Pulse Resp BP Sys/Gallegos Pulse Ox Last 24 Hr 98 F-98.4 F 70-88 17-20 145-149/68-79 93-95 PHYSICAL EXAM GENERAL: Awake, alert, and fully oriented, in no acute distress. HEAD: Normal with no signs of trauma. EYES: Pupils equal, round and reactive to light, extraocular movements intact, sclera anicteric, conjunctiva clear. No lid lag. EARS, NOSE, THROAT: Ears normal, nares patent, oropharynx clear without exudates. Moist mucous membranes. NECK: Normal range of motion, supple without lymphadenopathy, JVD, or masses. LUNGS: Breath sounds equal, clear to auscultation bilaterally. No wheezes, and no crackles. No accessory muscle use. HEART: Regular rate and rhythm, normal S1 and S2 without murmur, rub or gallop. ABDOMEN: Soft, nontender, not distended, normoactive bowel sounds, no guarding, no rebound, no masses. No hepatomegaly or splenomegaly. MUSCULOSKELETAL: Normal range of motion at all joints. No bony deformities or tenderness. No CVA tenderness. UPPER EXTREMITIES: 2+ pulses, warm, well-perfused. No cyanosis. No clubbing. No peripheral edema. LOWER EXTREMITIES: Aquacell dressing to left lateral hip, no strike-through, no surrounding edema or erythema. NEUROLOGICAL: No facial droop, tongue midline, normal speech. Normal gait. PSYCHIATRIC: Cooperative. Good eye contact. Appropriate mood and affect. SKIN: Warm, dry, normal turgor, no rashes or lesions noted, normal capillary refill. LABS Laboratory Results - last 24 hr 01/30/18 01/30/18 01/31/18 16:56 21:23 06:30 WBC 12.2 H RBC 4.51 Hgb 12.7 Hct 39.4 MCV 87.5 MCH 28.2 MCHC 32.2 RDW 13.8 Plt Count 193 MPV 9.7 Sodium Potassium Chloride Carbon Dioxide Anion Gap BUN Creatinine Creat Clearance w eGFR POC Glucometer 243 231 Random Glucose Calcium 01/31/18 01/31/18 01/31/18 06:30 06:33 11:01 WBC RBC Hgb Hct MCV MCH MCHC RDW Plt Count MPV Sodium 137 Potassium 4.5 Chloride 102 Carbon Dioxide 26 Anion Gap 8 BUN 17 Creatinine 1.2 Creat Clearance w eGFR 59.86 POC Glucometer 196 297 Random Glucose 194 H Calcium 9.2 HOSPITAL COURSE: Date of Admission:01/27/18 Date of Discharge: 01/31/18 72 year old male with a PMH significant for CAD s/p stent, HTN, HLD, DM presented to the ED with left hip pain following a fall. X-rays showed left femoral neck fracture. Patient had ORIF with Dr. Alvarez on 01/28/18. Procedure and post-op course unremarkable. Patient being d/vanessa today to subacute rehab at [facility]. Left femoral neck fracture -Post op day 3 left femoral neck fracture repair with cannulated screw under [place] by dr. alvarez -Oxycodone for pain control -Senna and Colace for bowel regimen -Miralax PRN -Subacute rehab upon d/c CAD -S/p stent -ASA 325 x 30 days (Hold home ASA 81 mg and re-start after 30 days) HTN -Lisinopril 20 HLD -Fenobirate -Rosuvastatin 20 mg Diabetes -Resume Omni pump -SS with novolog -Monitor Glucose BPH -Tamsulosin 0.4 mg -Finasteride 5 mg Diet -Diabetic Diet Prophylaxis DVT: ASA 325 x 30 days GI: Protonix Minutes to complete discharge: 25 Discharge Summary Reason For Visit: CLOSED FRACTURE OF LEFT HIP Current Active Problems Closed left hip fracture (Acute) Condition: Stable - Instructions Diet, Activity, Other Instructions: Parker Ray were admitted to [facility] from 01/27/18 -01/31/18 for left hip fracture. You had open reduction and internal fixation with Dr. Alvarez . Please call Dr. Alvarez's office to schedule follow up. You are being discharged to [facility] for subacute rehab. STOP taking Aspirin 81 mg START taking Aspirin 325 mg daily x 30 days, then resume aspirin 81 mg daily Please continue your home medications as ordered. Please return to the ER if you have any signs or symptoms of infection from the surgical site; increased swelling, drainage, warmth or redness, shortness of breath, uncontrollable fever or pain, chills, nausea, vomiting, numbness, tingling, or weakness in any part of your body, changes in vision, or slurred speech. Donna Gonsalzegett [facility]EL[facility] [phone] Referrals: Tye Alvarez MD [Staff Physician] - 2 Weeks Disposition: [facility] FAC[facility] - Home Medications Comprehensive Discharge Medication List: Ambulatory Orders Cholecalciferol (Vitamin D3) [Vitamin D3] 1,000 unit PO DAILY 01/27/18 Fenofibrate 54 mg PO DAILY 01/27/18 Finasteride 5 mg PO DAILY 01/27/18 Insulin Aspart [Novolog] 0 unit SQ ASDIR 01/27/18 Insulin Pump Cartridge [Omnipod] 1 each SQ ASDIR 01/27/18 Lipase/Protease/Amylase [Pb Valentine 24,000 Units Capsule] 1 each PO TID 01/27/18 Lisinopril [Prinivil] 20 mg PO DAILY 01/27/18 Metformin HCl [Metformin HCl ER] 1,000 mg PO BID 01/27/18 Pantoprazole Sodium [Protonix] 40 mg PO DAILY 01/27/18 Rosuvastatin Calcium [Crestor] 20 mg PO HS 01/27/18 Tamsulosin HCl [Flomax -] 0.4 mg PO BID 01/27/18 Aspirin [ASA -] 325 mg PO DAILY tablet 01/31/18 Docusate Sodium [Colace -] 100 mg PO TID capsule 01/31/18 Insulin Sliding Scale [Novolog Vial Sliding Scale -] 1 vial SQ TIDAC units 03/08 Lipase/Protease/Amylase [Pb Valentine 6,000 Units Capsule] 4 cap PO TIDCM capsule. 01/31/18 Polyethylene Glycol 3350 [Miralax 119 gm Btl -] 17 gm PO DAILY bottle 01/31/18 Sennosides [Senna -] 2 tab PO HS tablet 01/31/18 oxyCODONE HCL [Roxicodone -] 5 mg PO Q4H PRN tablet MDD 30 mg 01/31/18 This patient is new to me today: No Emergency Visit: No Critical Care patient: No - Discharge Referral Referred to [facility] No
[2018-01-31 16:05] VITALS: BP 149/87; PULSE 99; TEMP 97.8
== END 2018-01-31 15:58 | DRG 482 ==
LOC: JER 13:42 → JERBED 17:36 → J6S 21:07
PROVIDERS: ADMIT Internal Medicine; ATTEND Nurse Practitioner Adult Health
PROC: 0QS704Z Reposition Left Upper Femur with Internal Fixation Device, Open Approach (ICD-10-PCS; principal; 2018-01-28 15:00)
DX: S72.002A Fracture of unspecified part of neck of left femur, initial encounter for closed fracture (principal); E78.5 Hyperlipidemia, unspecified; I10 Essential (primary) hypertension; E11.9 Type 2 diabetes mellitus without complications; Z79.4 Long term (current) use of insulin; I25.10 Atherosclerotic heart disease of native coronary artery without angina pectoris; W18.39XA Other fall on same level, initial encounter; Y93.89 Activity, other specified; Y92.488 Other paved roadways as the place of occurrence of the external cause; Y99.8 Other external cause status; N40.0 Benign prostatic hyperplasia without lower urinary tract symptoms
CPT/HCPCS: 36415; 73523-TC-FY; 73552-TC-LT-FY; 80048; 80053; 82962; 85025; 85027; 85610; 85730; 86850; 86900; 86901; 93005; 93010; 94760; 97116-GP; 97161-GP; 99285-25; J1644